=== PATIENT | male | born 1940 | race Caucasian/White ===

== ENCOUNTER → 2019-10-05 | Outpatient (CLI) | payer OTHER ==
[~2019-10-05] VITALS: Ht 180.3 cm; Wt 119.3 kg
[~2019-10-05] MED LIST: AMBIEN 5 MG TABL5 M1 PO; ASPIR-TRIN325 MG PO; COLACE 100 MG100 MG PO; FINASTERIDE5 MG PO; FLOMAX0.4 MG PO; GLUCOPHAGE500 MG PO; GLYBURIDE 2.52.5 MG PO; GLYBURIDE-METF1 EACH PO; HYDROCODON-ACE1 EAC7 PO; HYDROCODONE-AP1 EAC6 PO; KEFLEX500 MG PO; METFORMIN HCL500 M3 PO; MILK OF MA2400 MG/10 PO; MINOCIN100 MG PO; NAPROSYN500 MG PO; NIASPAN ER 101000 M1 PO; OXYCODONE HCL5 M1 PO; PANTOPRAZOLE SO40 M1 PO; PHENERGAN 25 MG25 M1 PO; QUINAPRIL HCL40 MG PO; SPIRONOLACTONE25 MG PO; TRAMADOL 50 MG50 MG PO; XARELTO10 M1 PO; XARELTO10 MG PO; ZOCOR20 MG PO; ZPAK PO
[2019-10-05 10:37] VITALS: BP 148/69
--- NOTE | 2019-10-05 10:39 | NUR ---
Pain Clinic Assessment: 1. History of Osteoarthritis: Left Lower Extremity Right Upper Extremity History of Rheumatoid Arthritis: 2. Height: 5 ft. 11 in. 180.3 cm. Weight: 263.0 lb. oz. 119.296 kg. Patient's BMI: 36.7 3. Vital Signs: BP: 148/69 Pulse: 75 Resp: 16 Temp: 02 Sat: 93 ECG Mon: 4. Pain Intensity: 2 5. Fall Risk: Dizziness: N Needs help standing or walking: N Fallen in the last 3 months: N Fall risk comments: 6. Patient on Blood Thinner: None 7. History of Hypertension: Y 8. Opioid Therapy greater than 6 weeks: N Opiate Contract Signed: 9. Risk Assessment Tool Provided: 10. Functional Assessment Tool: 11. Recreational Drug Use: Never Drug Type: Tobacco Use: Never Smoker Tobacco Type: Amount or Packs/day: How Many Years: Alcohol Use: Past use Frequency: Weekly Quant: 1-4
--- NOTE | 2019-10-22 20:40 | HPC ---
[facility] [address] [place] [address] PAIN MANAGEMENT CONSULTATION Name: BELLE WEISS Room #: REG [facility]#: [id number] Admission: 10/05/19 Attend Phys: Henry Neves MD Discharge: Date of : 36 Report #: [id number] THIS REPORT FOR: cc: Jitendra Dawson MD, Elliott L. MD Brown,Henry Badillo MD ~ CC: Jitendra Neves DATE OF SERVICE: 10/05/2019 CHIEF COMPLAINT: Pain in the bottom of spine, shooting down the back of his leg, thigh, and calf. Pain has worsened over the last month. It does wax and wane as time goes on. Rates his pain today as 2/10 in intensity. Pain becomes more problematic with standing. At times, it becomes quite severe and has characterized by deep aching sensation. He has had some pain and discomfort for years, but at this point it has gotten worse over the last 6 months. ALLERGIES: No known drug allergies. CURRENT MEDICATIONS: Metformin 500 mg b.i.d., spironolactone 25 mg, finasteride 5 mg, Flomax 0.4 mg, and Zocor 20 mg. PAST MEDICAL HISTORY: 1. Hypercholesterolemia. 2. Benign prostatic hypertrophy. 3. Diabetes. PAST SURGICAL HISTORY: Right total hip replacement in 2009. SOCIAL HISTORY: He is retired railroad hand. REVIEW OF SYSTEMS: Generally good health, wears glasses, shortness of breath when lying flat, frequent urination, and awakens to urinate at night. LABORATORY DATA: 1. L3-L4, MRI of the lumbar spine dated 09/06/2019 show L3-L4 broad-based posterior disk bulge, bilateral facet hypertrophy, and ligamentum flavum hypertrophy resulting in severe central canal stenosis and AP diameter of the central canal of 7.6 mm and mild bilateral neural foraminal narrowing. 2. L4-L5, grade 1 anterolisthesis, large broad-based posterior disk bulge, severe bilateral facet hypertrophy with severe ligamentum flavum hypertrophy resulting in severe central canal stenosis and AP diameter of the central canal of 4.6 mm and severe bilateral neural foraminal narrowing. [facility] [address] [place] [address] PAIN MANAGEMENT CONSULTATION Name: BELLE WEISS Room #: REG [facility]#: [id number] Admission: 10/05/19 Attend Phys: Henry Neves MD Discharge: Date of : 36 Report #: [id number] 3. L5-S1, broad-based posterior disk bulge, severe bilateral facet hypertrophy, and ligamentum flavum hypertrophy resulting in severe central canal stenosis and AP diameter of the central canal of 4.8 mm and severe bilateral foraminal narrowing. PAIN CLINIC ASSESSMENT/PQRS: 1. History of osteoarthritis involving her back following hip replacement, the patient is not being treated for rheumatoid arthritis. 2. Height 5 feet 11 inches, weight 263 pounds, BMI is 36.7. 3. Vital Signs: Blood pressure 148/69, pulse 75, respiratory rate 16, room air saturation 93%. 4. Pain intensity 04/30. 5. Fall risk. The patient has not fallen in the last 3 months. 6. Blood thinner. The patient is not on a blood thinning medication. 7. Hypertension. The patient is being treated for hypertension. 8. Opioids greater than 6 weeks. The patient is not being treated with opioid medications on a regular basis. 9. Risk assessment tool, low for opioid. 10. Functional assessment tool, . 11. Recreational drug use. The patient denies. 12. Alcohol: The patient drinks beverages weekly. PHYSICAL EXAMINATION: GENERAL: The patient is a well-developed, well-nourished white male. Appears his stated age of [age] years old. He is alert and oriented x 3. His affect is appropriate. Speech is fluent. HEENT: Normocephalic, atraumatic. Extraocular eye muscles intact. Sclerae not icteric. Mucous membranes are moist. The patient is wearing a mask. NECK: Without adenopathy or JVD. HEART: Regular rate. LUNGS: Generally clear to auscultation. ABDOMEN: Nontender. EXTREMITIES: Upper extremity muscle strength judged to be 5/5 for the major muscle groups in the upper extremity. Lower extremity muscle strength judged to be 5/5 for the major muscle groups in the lower extremity. The patient does complain of pain and discomfort with prolonged standing. Notes that pain radiates into the posterior portion of his back, buttocks, and into the calf areas with prolonged standing as well as with walking for some distances. He notes the pain improves when he sits down and pain improves after about 5 minutes of rest. IMPRESSION: 1. Spinal stenosis in the back area with severe stenosis at L3-L4 of 4-5 mm and at L5-S1 of 4.8 mm with bilateral neural foraminal narrowing. 2. Hypercholesterolemia. 3. Benign prostatic hypertrophy. [facility] [address] [place] [address] PAIN MANAGEMENT CONSULTATION Name: BELLE WEISS [id number] Admission: 10/05/19 Attend Phys: Henry Neves MD Discharge: Date of : 36 Report #: [id number] 4. Diabetes. RECOMMENDATIONS: We discussed treatment options with the patient. Options, which include no treatment, epidural steroid injection, medications, and surgery as last resort. We explained to the patient, he appears to understand. At this juncture, he would like to consider the option of medical management. We will have the patient try hydrocodone 5 mg 1 p.o. t.i.d. Hopefully, he will find this medication is helpful and he will be able to engage in activities of daily living with less discomfort. He states that he does take care of his . We would like to thank you for letting us participate in his care. We hope he continues to improve. <ELECTRONICALLY SIGNED> By: Henry Neves MD 10/22/19 [id number] Henry Neves MD /[facility]
== END ==
LOC: PAIN 06:51
PROVIDERS: ATTEND Anesthesiology Pain Medicine
DX: M48.061 Spinal stenosis, lumbar region without neurogenic claudication (principal); N40.0 Benign prostatic hyperplasia without lower urinary tract symptoms; E78.00 Pure hypercholesterolemia, unspecified; E11.9 Type 2 diabetes mellitus without complications; Z79.891 Long term (current) use of opiate analgesic